=== PATIENT | male | born 1985 | race Caucasian/White ===

== ENCOUNTER 2019-10-24 23:32 | Emergency (ER) | payer MEDICAID ==
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
[2019-10-24] MEDS ORDERED: TETANUS/DIPHTHERIA/PERTUSSIS 0.5 ML SYRINGE IM ONE (23:56)
[2019-10-24] MEDS ORDERED: LIDOCAINE 1%-EPI 1:100000 20 ML MDV SUBQ STA (23:56)
[2019-10-24] MEDS ORDERED: BACITRACIN ZINC OINT 1 PACKET TOP STA (23:57)
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
[2019-10-25] MEDS ORDERED: ceFAZolin 2 GM in SODIUM CHLORIDE 0.9% 100ML 100 ML IV STA (01:36)
[2019-10-25] MEDS ORDERED: HYDROmorphone 2 MG/ML VIAL IVP STA (01:40)
[2019-10-25 01:51] LABS: BASOPHILS # (AUTO) 0.1 10^3/uL (0.0-0.1); BASOPHILS % (AUTO) 0.6 %; EOSINOPHILS # (AUTO) 0.3 10^3/uL (0.0-0.7); EOSINOPHILS % (AUTO) 2.2 %; HGB - HEMOGLOBIN 12.5 g/dL (14.0-18.0); LYMPHOCYTES # (AUTO) 3.3 10^3/uL (1.5-3.5); LYMPHOCYTES % (AUTO) 26.8 %; MEAN CORPUSCULAR HEMOGLOBIN 29.6 pg (27.0-31.0); MEAN CORPUSCULAR HGB CONC 32.5 g/dL (32.0-36.0); MEAN CORPUSCULAR VOLUME 91.2 fL (80.0-94.0); MEAN PLATELET VOLUME 9.1 fL (7.4-11.4); MONOCYTES # (AUTO) 1.2 10^3/uL (0.0-1.0); MONOCYTES % (AUTO) 9.6 %; NEUTROPHILS # (AUTO) 7.5 10^3/uL (1.5-6.6); PLT - PLATELET COUNT 346 10^3/uL (130-450); RED BLOOD COUNT 4.22 10^6/uL (4.70-6.10); RED CELL DISTRIBUTION WIDTH 13.1 % (12.0-15.0); WHITE BLOOD COUNT 12.5 x10^3/uL (4.8-10.8)
[2019-10-25 01:56] LABS: INR 1.1 (0.8-1.2); PT - PROTHROMBIN TIME 12.7 secs (9.9-12.6)
[2019-10-25] MEDS ORDERED: LORazepam 2 MG/ML VIAL IVP STA ×2 (02:01→03:40)
[2019-10-25 02:04] LABS: ALBUMIN 3.7 g/dL (3.2-5.5); ALKALINE PHOSPHATASE 87 IU/L (42-121); ALT ALANINE AMINOTRANSFERASE 18 IU/L (10-60); AST ASPARTATE AMINOTRANSFERASE 17 IU/L (10-42); BILIRUBIN,TOTAL 0.5 mg/dL (0.2-1.0); BUN - BLOOD UREA NITROGEN 17 mg/dL (6-20); CALCIUM 8.9 mg/dL (8.5-10.3); CARBON DIOXIDE - CO2 27 mmol/L (21-32); CHLORIDE 103 mmol/L (101-111); CREATININE 0.9 mg/dL (0.6-1.2); GFR - MDRD 97 (>89); GLUCOSE 114 mg/dL (70-100); LIPASE 23 U/L (22-51); PARTIAL THROMBOPLASTIN TIME 31.1 secs (24.9-33.3); SODIUM 142 mmol/L (135-145); TOTAL PROTEIN 7.4 g/dL (6.7-8.2)
[2019-10-25] MEDS ORDERED: MORPHINE 2 MG/ML CARPUJECT IVP STA (02:07)
[2019-10-25] MEDS: NICOTINE 21 MG PATCH TOP STA ×2 (02:19→03:53)
[2019-10-25] MEDS ORDERED: KETAMINE 500 MG/10 ML VIAL IVP STA (03:41)
[2019-10-25 04:18] VITALS: BP 154/132
== END 2019-10-25 04:19 | disposition short-term general hospital (02) ==
LOC: ED 23:32
DX: S02.0XXB Fracture of vault of skull, initial encounter for open fracture (principal); S06.4X1A Epidural hemorrhage with loss of consciousness of 30 minutes or less, initial encounter; W22.8XXA Striking against or struck by other objects, initial encounter; I10 Essential (primary) hypertension; F17.200 Nicotine dependence, unspecified, uncomplicated
CPT/HCPCS: 12002; 36415; 70450; 70486; 72125; 80053; 80320; 83690; 85025; 85610; 85730; 96365; 96375; 99285; 99291; A9270; J2060

== ENCOUNTER 2023-11-08 11:12 | Outpatient (CLI) | payer MEDICAID | END 2023-11-08 11:13 | disposition EMS.NT | LOC: EMS 11:12 | DX: R51.9 Headache, unspecified (principal); S00.83XA Contusion of other part of head, initial encounter; Y04.0XXA Assault by unarmed brawl or fight, initial encounter; Y92.019 Unspecified place in single-family (private) house as the place of occurrence of the external cause ==